=== PATIENT | male | born 1995 | race Caucasian/White ===

== ENCOUNTER 2019-11-27 10:16 | Emergency (ER) | payer OTHER ==
[~2019-11-27] VITALS: Ht 170.2 cm; Wt 81.6 kg
--- NOTE | 2019-11-27 10:20 | NUR ---
sent to no beds
[2019-11-27 11:09] VITALS: BP_SYST 145
--- NOTE | 2019-11-27 11:20 | NUR ---
placed in hallway. Dr Bedolla at bedside
[2019-11-27] MEDS ORDERED: ONDANSETRON HCL 4 MG/2 ML VIAL IVP ONE (11:30)
[2019-11-27] MEDS ORDERED: DIPHENHYDRAMINE INJ 50 MG/ML VIAL IVP ONE (11:30)
[2019-11-27] MEDS ORDERED: MORPHINE 2 MG/ML INJ. SYRINGE IVP ONE (11:30)
[2019-11-27 11:58] LABS: BASOPHILS % (AUTO) 0.2 % (0.0-2.0); HEMOGLOBIN 16.9 g/dL (14.0-18.0); LYMPHOCYTES # (AUTO) 1.2 K/uL (1.0-5.5); LYMPHOCYTES % (AUTO) 8.8 % (20.5-51.5); MEAN CORPUSCULAR HEMOGLOBIN 32 pg (27-31); MEAN CORPUSCULAR HGB CONC 35 % (32-36); MEAN CORPUSCULAR VOLUME 92 fL (79.0-98.0); MONOCYTES # (AUTO) 0.7 K/uL (0.0-1.0); MONOCYTES % (AUTO) 4.7 % (1.7-9.3); NEUTROPHILS % (AUTO) 86.3 % (40.0-70.0); PLATELET COUNT (AUTO) 272 K/uL (130-430); RED BLOOD CELL COUNT(AUTO) 5.23 MIL/uL (4.2-6.2); RED CELL DISTRIBUTION WIDTH 12.7 % (9.0-15.0); WHITE BLOOD COUNT (AUTO) 13.9 K/uL (4.8-10.8)
[2019-11-27 12:04] LABS: CALCIUM 8.8 mg/dL (8.4-11.0); POTASSIUM 3.4 mmol/L (3.5-5.1)
[2019-11-27 12:06] LABS: PROTHROMBIN TIME 10.5 SECS (9.5-12.5)
[2019-11-27 12:09] LABS: ALBUMIN 4.3 g/dL (3.4-4.8); TOTAL BILIRUBIN 0.6 mg/dL (0.0-1.0)
--- NOTE | 2019-11-27 12:21 | NUR ---
iv started , medicated as ordered, educated on pain control
[2019-11-27] MEDS ORDERED: KETOROLAC TROMETHAMINE 30 MG VIAL IVP ONE (13:30)
[2019-11-27 14:55] VITALS: BP_SYST 128
--- NOTE | 2019-11-27 14:55 | NUR ---
Patient given written and verbal discharge instructions and verbalizes understanding. ER MD discussed with patient the results and treatment provided. Patient in stable condition. ID arm band removed. IV catheter removed intact and dressing applied, no active bleeding. Rx of Motrin given. Patient educated on pain management and to follow up with PMD. Pain Scale 0/10 Opportunity for questions provided and answered. Medication side effect fact sheet provided.
== END 2019-11-27 14:55 | disposition home or self-care (01) ==
LOC: SED 10:16
DX: N20.0 Calculus of kidney (principal)
CPT/HCPCS: 36415; 71045; 74018; 74176; 80053; 83605; 83690; 85025; 85610; 87040; 93005; 96374; 96375; 99285; J1200; J1885; J2270; J2405